=== PATIENT | male | born 1960 | race African-American/Black ===

== ENCOUNTER 2018-12-13 04:05 | Emergency (ER) | payer MEDICAID ==
[~2018-12-13] VITALS: Ht 177.8 cm; Wt 99.8 kg
[~2018-12-13 04:05] MED LIST: NKM
--- NOTE | 2018-12-13 04:06 | NUR ---
ED Nurse Note: Pt ambulated with EMT, c/o difficulty walking, today. Pt is AO x 4times, VSS, on room air no distress. Pt states he is current homeless. SERGIO seen Pt at bedside.
[2018-12-13 04:08] VITALS: BP 134/84
[2018-12-13] MEDS ORDERED: IBUPROFEN600 MG ORAL (04:33)
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
[2018-12-13 06:39] VITALS: BP 127/80
--- NOTE | 2018-12-13 06:39 | NUR ---
Homeless Discharge: Patient is being discharged from medical care. Awake, alert and oriented x3. After care instructions, including referral to community resources were given. Patient verbalized understanding of After care instructions; at this time patient does not request medications, equipment or placement. Patient signed patient consent in the medical record for patient destination upon discharge. All medical devices such as IV and ID band were removed. Patient ambulated out with all personal belongings with steady gait.
[2018-12-13] MEDS ORDERED: Acetaminophen 500mg (ES) tab ORAL ONE (06:45)
== END 2018-12-13 06:41 | disposition home or self-care (01) ==
LOC: EDBD 04:05 → EMR 04:15
DX: M79.605 Pain in left leg (principal); F20.9 Schizophrenia, unspecified
CPT/HCPCS: 99282